=== PATIENT | male | born 1955 | race Native Hawaiian/Other Pacific Islander ===

== ENCOUNTER 2017-08-05 00:09 | Inpatient (IN) | payer OTHER ==
[~2017-08-05] VITALS: Ht 177.8 cm; Wt 106.1 kg
[~2017-08-05 00:09] MED LIST: PHEN-649 PO; PHENY100 PO
[2017-08-05] MEDS ORDERED: NITROGLYCERIN 2% (1 GM=INCH) PACKET TP ONE (00:30)
[2017-08-05] MEDS ORDERED: ASPIRIN 81 MG CHEWABLE TABLET PO ONE (00:30)
[2017-08-05 01:07] LABS: BASOPHILS # (AUTO) 0.04 K/uL (0.00-0.20); BASOPHILS % (AUTO) 0.4 % (0.0-2.0); EOSINOPHILS # (AUTO) 0.39 K/uL (0.00-0.70); EOSINOPHILS % (AUTO) 3.81 % (1.0-6.0); HEMATOCRIT 38.2 % (41-53); HEMOGLOBIN 12.9 g/dL (13.5-17.5); LYMPHOCYTES # (AUTO) 1.5 K/uL (1.0-4.8); LYMPHOCYTES % (AUTO) 15.3 % (22.0-44.0); MEAN CORPUSCULAR HEMOGLOBIN 29.8 pg (26.0-34.0); MEAN CORPUSCULAR HGB CONC 33.8 G/dL (31.0-37.0); MEAN CORPUSCULAR VOLUME 88 fL (80-100); MONOCYTES # (AUTO) 0.8 K/uL (0.1-1.0); MONOCYTES % (AUTO) 8.1 % (2.0-9.0); NEUTROPHILS # (AUTO) 7.3 K/uL (1.8-7.7); NEUTROPHILS % (AUTO) 72.4 % (40.0-70.0); PLATELET COUNT (AUTO) 266 K/uL (150-450); RED BLOOD CELL COUNT(AUTO) 4.35 MIL/uL (4.50-5.90); RED CELL DISTRIBUTION WIDTH 13.2 % (11.5-14.5)
[2017-08-05] MEDS ORDERED: SODIUM CHLORIDE 0.9% 1,000 ML IV ONE ×2 (01:15→05:30)
[2017-08-05] MEDS ORDERED: ONDANSETRON HCL 4 MG/2 ML VIAL IVP ONE (01:15)
[2017-08-05] MEDS ORDERED: MORPHINE SULFATE 4 MG/ML SYRINGE IVP ONE ×2 (01:15→18:30)
[2017-08-05 01:17] LABS: ANION GAP 7 mmol/L (8-16); CALCIUM, TOTAL 8.7 mg/dL (8.8-10.5); CARBON DIOXIDE 31 mmol/L (22-29); CHLORIDE 104 mmol/L (98-107); CREATININE 1.17 mg/dL (0.60-1.30); GLOMERULAR FILTR. RATE CALC > 60 mL/min (>60); GLUCOSE,RANDOM 112 mg/dL (70-110); SODIUM SERUM 142 mmol/L (136-145); UREA NITROGEN, BLOOD 21 mg/dL (7-18)
[2017-08-05 01:23] LABS: ALANINE AMINOTRANSFERASE 35 U/L (12-78); ALBUMIN 3.8 g/dL (3.4-5.0); ALKALINE PHOSPHATASE 126 U/L (46-116); ASPARTATE AMINOTRANSFERASE 26 U/L (15-37); BILIRUBIN,TOTAL 0.3 mg/dL (0.1-1.0); LIPASE 139 U/L (73-393); TOTAL PROTEIN, SERUM 7.5 g/dL (6.4-8.2)
[2017-08-05] MEDS ORDERED: HYDROmorphone 2 MG/ML SYRINGE IVP ONE ×2 (02:15→03:45)
[2017-08-05] MEDS ORDERED: ACETAMINOPHEN 325 MG TABLET PO PRN ×2 (05:30→22:00)
[2017-08-05] MEDS ORDERED: ONDANSETRON HCL 4 MG/2 ML VIAL IVP PRN ×3 (05:30→22:00)
[2017-08-05] MEDS ORDERED: 0.9% SODIUM CHLORIDE 10 ML SYRINGE IVP PRN (05:30)
[2017-08-05] MEDS ORDERED: HEPARIN SODIUM,PORCINE 5,000 UNITS/ML VIAL IVP PRN (08:30)
[2017-08-05] MEDS: MORPHINE SULFATE 4 MG/ML SYRINGE IVP PRN ×3 (08:45→23:15)
[2017-08-05 08:59] LABS: INR 1.1 (0.9-1.1); PROTHROMBIN TIME 11.1 SEC (9.4-11.6)
[2017-08-05] MEDS ORDERED: ENOXAPARIN SODIUM 100 MG/ML PF SYRINGE SQ ONE (09:00)
[2017-08-05] MEDS ORDERED: ENOXAPARIN SODIUM 100 MG/ML PF SYRINGE SQ SCH (09:00)
[2017-08-05 09:12] LABS: ABG A-A DIFF O2 445.1 mmHg (10-20.0); ABG CARBOXYHEMOGLOBIN 1.3 % (0.0-1.5); ABG HCO3 24.9 mmol/L (22.0-26.0); ABG METHEMOGLOBIN 0.4 % (0.0-1.5); ABG OXYGEN CONTENT 16.9 mL/dL (15.0-23.0); ABG OXYGEN SATURATION 99.5 % (95.0-98.0); ABG OXYHEMOGLOBIN 97.8 % (94.0-100.0); ABG PCO2 49 mmHg (35-45); ABG PH 7.354 (7.35-7.450); ABG TOTAL HEMOGLOBIN 11.9 G/dL (12.0-18.0); O2 DEVICE,BLOOD GAS NON REBREATHER (ROOM AIR); PO2, ARTERIAL BG 219.7 mmHg (79.0-87.0); SITE, BLOOD GAS RT RADIAL; SOURCE, BLOOD GAS ARTERIAL; TEMPERATURE, FAHRENHEIT, BG 98.2 FAHREN (96.0-98.6)
[2017-08-05] MEDS: BUDESONIDE 0.5 MG/2 ML NEB SOLUTION NEB SCH ×2 (09:15→23:14)
[2017-08-05] MEDS: HEPARIN SODIUM 25000 UNITS/D5W 250 ML IV PRN (12:38)
[2017-08-05] MEDS: ALBUTEROL SULFATE 2.5 MG/0.5 ML NEB SOLUTION NEB SCH ×4 (12:48→23:14)
[2017-08-05] MEDS: IPRATROPIUM BROMIDE 0.5 MG/2.5 ML NEB SOLUTION NEB SCH ×4 (12:48→23:14)
[2017-08-05] MEDS ORDERED: MORPHINE SULFATE 4 MG/ML SYRINGE ONE (18:10)
[2017-08-05] MEDS ORDERED: MORPHINE SULFATE 4 MG/ML SYRINGE IM ONE (18:15)
[2017-08-05 18:47] LABS: GLUCOSE,POINT OF CARE 110 MG/DL (70-110)
[2017-08-05] MEDS ORDERED: MORPHINE SULFATE 4 MG/ML SYRINGE IVP PRN (19:45)
[2017-08-05] MEDS ORDERED: MORPHINE SULFATE 2 MG/ML SYRINGE IVP PRN (20:00)
[2017-08-05] MEDS: HEPARIN SODIUM,PORCINE 5,000 UNITS/ML VIAL IVP PRN (20:38)
[2017-08-05] MEDS ORDERED: MAGNESIUM HYDROXIDE SUSPENSION 30 ML UDCUP PO PRN (22:00)
[2017-08-05] MEDS ORDERED: IPRATROPIUM BROMIDE 0.5 MG/2.5 ML NEB SOLUTION NEB PRN (22:00)
[2017-08-05] MEDS ORDERED: ZOLPIDEM TARTRATE 5 MG TABLET PO PRN (22:00)
[2017-08-05] MEDS ORDERED: ALBUTEROL SULFATE 2.5 MG/0.5 ML NEB SOLUTION NEB PRN (22:00)
[2017-08-05] MEDS ORDERED: BISACODYL 10 MG RECTAL RECTAL SUPPOSITORY PR PRN (22:00)
[2017-08-06] VITALS (8 sets, daily range): BP systolic 114–149; BP diastolic 52–87
[2017-08-06] MEDS: IPRATROPIUM BROMIDE 0.5 MG/2.5 ML NEB SOLUTION NEB SCH ×6 (02:58→23:11)
[2017-08-06] MEDS: ALBUTEROL SULFATE 2.5 MG/0.5 ML NEB SOLUTION NEB SCH ×6 (02:58→23:11)
[2017-08-06] MEDS: HEPARIN SODIUM 25000 UNITS/D5W 250 ML IV PRN ×2 (06:16→19:54)
[2017-08-06] MEDS: MORPHINE SULFATE 4 MG/ML SYRINGE IVP PRN ×2 (07:00→23:15)
[2017-08-06 08:21] LABS: BASOPHILS % (AUTO) 0.2 % (0.0-2.0); EOSINOPHILS % (AUTO) 1.2 % (1.0-6.0); HEMATOCRIT 34.3 % (41-53); HEMOGLOBIN 11.8 g/dL (13.5-17.5); LYMPHOCYTES # (AUTO) 1.2 K/uL (1.0-4.8); LYMPHOCYTES % (AUTO) 10.1 % (22.0-44.0); MEAN CORPUSCULAR HEMOGLOBIN 30.2 pg (26.0-34.0); MEAN CORPUSCULAR HGB CONC 34.5 G/dL (31.0-37.0); MEAN CORPUSCULAR VOLUME 88 fL (80-100); MONOCYTES # (AUTO) 0.8 K/uL (0.1-1.0); MONOCYTES % (AUTO) 7.2 % (2.0-9.0); NEUTROPHILS # (AUTO) 9.3 K/uL (1.8-7.7); NEUTROPHILS % (AUTO) 81.3 % (40.0-70.0); PLATELET COUNT (AUTO) 249 K/uL (150-450); RED BLOOD CELL COUNT(AUTO) 3.92 MIL/uL (4.50-5.90); RED CELL DISTRIBUTION WIDTH 13.5 % (11.5-14.5)
[2017-08-06 08:47] LABS: ALANINE AMINOTRANSFERASE 26 U/L (12-78); ALBUMIN 2.8 g/dL (3.4-5.0); ALKALINE PHOSPHATASE 107 U/L (46-116); ANION GAP 5 mmol/L (8-16); ASPARTATE AMINOTRANSFERASE 17 U/L (15-37); BILIRUBIN,TOTAL 0.5 mg/dL (0.1-1.0); CALCIUM, TOTAL 8.1 mg/dL (8.8-10.5); CARBON DIOXIDE 30 mmol/L (22-29); CHLORIDE 101 mmol/L (98-107); CREATININE 1.05 mg/dL (0.60-1.30); GLOMERULAR FILTR. RATE CALC > 60 mL/min (>60); GLUCOSE,RANDOM 129 mg/dL (70-110); POTASSIUM 3.8 mmol/L (3.5-5.1); SODIUM SERUM 136 mmol/L (136-145); THYROID STIMULATING HORMONE 0.29 uIU/mL (0.36-3.74); TOTAL PROTEIN, SERUM 6.9 g/dL (6.4-8.2); UREA NITROGEN, BLOOD 8 mg/dL (7-18)
[2017-08-06] MEDS: PANTOPRAZOLE SODIUM 40 MG/VIAL IVP SCH (09:05)
[2017-08-06] MEDS: HYDROCODONE/ACETAMINOPHEN 5-325 MG TABLET PO PRN ×2 (09:05→18:35)
[2017-08-06] MEDS: DOCUSATE SODIUM 100 MG CAPSULE PO SCH ×2 (09:05→21:30)
[2017-08-06 10:17] LABS: ABG A-A DIFF O2 167.6 mmHg (10-20.0); ABG CARBOXYHEMOGLOBIN 1.4 % (0.0-1.5); ABG HCO3 25.9 mmol/L (22.0-26.0); ABG METHEMOGLOBIN 0.2 % (0.0-1.5); ABG OXYGEN SATURATION 93.9 % (95.0-98.0); ABG OXYHEMOGLOBIN 92.4 % (94.0-100.0); ABG PCO2 43 mmHg (35-45); ABG PH 7.408 (7.35-7.450); ABG TOTAL HEMOGLOBIN 12.3 G/dL (12.0-18.0); PO2, ARTERIAL BG 68.1 mmHg (79.0-87.0); SOURCE, BLOOD GAS ARTERIAL; TEMPERATURE, FAHRENHEIT, BG 98.3 FAHREN (96.0-98.6)
[2017-08-06 10:18] LABS: O2 DEVICE,BLOOD GAS VENTI MASK (ROOM AIR); SITE, BLOOD GAS RT RADIAL
[2017-08-06] MEDS: BUDESONIDE 0.5 MG/2 ML NEB SOLUTION NEB SCH ×2 (10:52→19:33)
[2017-08-06] MEDS ORDERED: FentaNYL CITRATE-PF 100 MCG/2 ML VIAL ONE (11:09)
[2017-08-06] MEDS ORDERED: MIDAZOLAM HCL 2 MG/2 ML VIAL ONE (11:09)
[2017-08-06] MEDS ORDERED: MIDAZOLAM HCL 2 MG/2 ML VIAL IVP ONE (12:11)
[2017-08-06] MEDS: HEPARIN SODIUM,PORCINE 5,000 UNITS/ML VIAL IVP PRN (18:37)
[2017-08-07] MEDS: HEPARIN SODIUM 25000 UNITS/D5W 250 ML IV PRN ×3 (01:37→18:31)
[2017-08-07] MEDS: ALBUTEROL SULFATE 2.5 MG/0.5 ML NEB SOLUTION NEB SCH ×6 (02:42→23:09)
[2017-08-07] MEDS: IPRATROPIUM BROMIDE 0.5 MG/2.5 ML NEB SOLUTION NEB SCH ×6 (02:42→23:08)
[2017-08-07 05:30] VITALS: BP 137/76
[2017-08-07 07:40] LABS: BASOPHILS # (AUTO) 0.09 K/uL (0.00-0.20); BASOPHILS % (AUTO) 0.9 % (0.0-2.0); EOSINOPHILS # (AUTO) 0.28 K/uL (0.00-0.70); EOSINOPHILS % (AUTO) 2.83 % (1.0-6.0); HEMATOCRIT 32.8 % (41-53); LYMPHOCYTES # (AUTO) 1.2 K/uL (1.0-4.8); LYMPHOCYTES % (AUTO) 12.1 % (22.0-44.0); MEAN CORPUSCULAR HEMOGLOBIN 29.9 pg (26.0-34.0); MEAN CORPUSCULAR HGB CONC 33.6 G/dL (31.0-37.0); MEAN CORPUSCULAR VOLUME 89 fL (80-100); MONOCYTES # (AUTO) 0.8 K/uL (0.1-1.0); MONOCYTES % (AUTO) 7.6 % (2.0-9.0); NEUTROPHILS # (AUTO) 7.6 K/uL (1.8-7.7); NEUTROPHILS % (AUTO) 76.5 % (40.0-70.0); PLATELET COUNT (AUTO) 230 K/uL (150-450); RED BLOOD CELL COUNT(AUTO) 3.68 MIL/uL (4.50-5.90); RED CELL DISTRIBUTION WIDTH 13.6 % (11.5-14.5)
[2017-08-07 07:42] LABS: ANION GAP 6 mmol/L (8-16); CALCIUM, TOTAL 8.1 mg/dL (8.8-10.5); CARBON DIOXIDE 31 mmol/L (22-29); CHLORIDE 102 mmol/L (98-107); CREATININE 1.15 mg/dL (0.60-1.30); GLOMERULAR FILTR. RATE CALC > 60 mL/min (>60); GLUCOSE,RANDOM 109 mg/dL (70-110); POTASSIUM 3.7 mmol/L (3.5-5.1); SODIUM SERUM 139 mmol/L (136-145); UREA NITROGEN, BLOOD 10 mg/dL (7-18)
[2017-08-07 07:55] VITALS: BP 129/79
[2017-08-07] MEDS: DOCUSATE SODIUM 100 MG CAPSULE PO SCH ×2 (09:00→20:38)
[2017-08-07] MEDS: PANTOPRAZOLE SODIUM 40 MG/VIAL IVP SCH (09:35)
[2017-08-07] MEDS: BUDESONIDE 0.5 MG/2 ML NEB SOLUTION NEB SCH ×2 (10:00→23:08)
[2017-08-07 11:27] VITALS: BP 122/81
[2017-08-07] MEDS: MORPHINE SULFATE 4 MG/ML SYRINGE IVP PRN ×2 (14:46→20:39)
[2017-08-07 15:18] VITALS: BP 149/86
[2017-08-07] MEDS: MethylPREDNISolone SOD SUCC 40 MG/ML VIAL IVP SCH (18:29)
[2017-08-07] MEDS: HEPARIN SODIUM,PORCINE 5,000 UNITS/ML VIAL IVP PRN (18:30)
[2017-08-07] MEDS ORDERED: PROPRANOLOL HCL 40 MG TABLET PO ONE (18:30)
[2017-08-07] MEDS: APIXABAN 5 MG TABLET PO SCH (20:39)
[2017-08-07 23:25] VITALS: BP 131/80
[2017-08-08] MEDS: MORPHINE SULFATE 4 MG/ML SYRINGE IVP PRN (00:42)
[2017-08-08] MEDS: MethylPREDNISolone SOD SUCC 40 MG/ML VIAL IVP SCH ×4 (00:46→19:45)
[2017-08-08] MEDS: IPRATROPIUM BROMIDE 0.5 MG/2.5 ML NEB SOLUTION NEB SCH ×6 (03:23→23:00)
[2017-08-08] MEDS: ALBUTEROL SULFATE 2.5 MG/0.5 ML NEB SOLUTION NEB SCH ×6 (03:23→23:00)
[2017-08-08 04:58] VITALS: BP 145/96
[2017-08-08] MEDS: HYDROCODONE/ACETAMINOPHEN 5-325 MG TABLET PO PRN ×3 (05:44→21:12)
[2017-08-08 08:39] VITALS: BP 128/85
[2017-08-08] MEDS: DOCUSATE SODIUM 100 MG CAPSULE PO SCH ×2 (08:47→21:11)
[2017-08-08] MEDS: PANTOPRAZOLE SODIUM 40 MG/VIAL IVP SCH (08:47)
[2017-08-08] MEDS: APIXABAN 5 MG TABLET PO SCH ×2 (08:48→21:11)
[2017-08-08] MEDS: BUDESONIDE 0.5 MG/2 ML NEB SOLUTION NEB SCH ×2 (09:20→23:00)
[2017-08-08 11:20] VITALS: BP 105/54
[2017-08-08 15:41] VITALS: BP 113/56
[2017-08-08 19:44] VITALS: BP 104/77
[2017-08-08 22:49] VITALS: BP 126/69
[2017-08-09] MEDS: MethylPREDNISolone SOD SUCC 40 MG/ML VIAL IVP SCH ×4 (01:39→18:02)
[2017-08-09 01:44] VITALS: BP 129/77
[2017-08-09] MEDS: IPRATROPIUM BROMIDE 0.5 MG/2.5 ML NEB SOLUTION NEB SCH ×6 (03:40→22:57)
[2017-08-09] MEDS: ALBUTEROL SULFATE 2.5 MG/0.5 ML NEB SOLUTION NEB SCH ×6 (03:40→22:57)
[2017-08-09 05:02] VITALS: BP 123/65
[2017-08-09] MEDS: BUDESONIDE 0.5 MG/2 ML NEB SOLUTION NEB SCH ×2 (07:35→19:09)
[2017-08-09 08:00] VITALS: BP 123/78
[2017-08-09] MEDS: PANTOPRAZOLE SODIUM 40 MG/VIAL IVP SCH (08:33)
[2017-08-09] MEDS: DOCUSATE SODIUM 100 MG CAPSULE PO SCH ×2 (08:33→19:38)
[2017-08-09] MEDS: HYDROCODONE/ACETAMINOPHEN 5-325 MG TABLET PO PRN ×2 (08:45→18:02)
[2017-08-09] MEDS: APIXABAN 5 MG TABLET PO SCH ×2 (11:12→22:22)
[2017-08-09 12:00] VITALS: BP 141/75
[2017-08-09 16:20] VITALS: BP 130/78
[2017-08-09 19:12] VITALS: BP 140/78
[2017-08-09] MEDS: MORPHINE SULFATE 4 MG/ML SYRINGE IVP PRN (19:38)
[2017-08-10] MEDS: MethylPREDNISolone SOD SUCC 40 MG/ML VIAL IVP SCH ×3 (00:03→12:06)
[2017-08-10 01:25] VITALS: BP 148/73
[2017-08-10] MEDS: HYDROCODONE/ACETAMINOPHEN 5-325 MG TABLET PO PRN ×3 (01:36→12:06)
[2017-08-10] MEDS: ALBUTEROL SULFATE 2.5 MG/0.5 ML NEB SOLUTION NEB SCH ×3 (03:19→11:36)
[2017-08-10] MEDS: IPRATROPIUM BROMIDE 0.5 MG/2.5 ML NEB SOLUTION NEB SCH ×3 (03:19→11:36)
[2017-08-10 06:07] VITALS: BP 140/91
[2017-08-10 07:06] LABS: EOSINOPHILS % (AUTO) 0 % (1.0-6.0); HEMOGLOBIN 11.3 g/dL (13.5-17.5); LYMPHOCYTES # (AUTO) 0.7 K/uL (1.0-4.8); LYMPHOCYTES % (AUTO) 2.8 % (22.0-44.0); MEAN CORPUSCULAR HEMOGLOBIN 29.6 pg (26.0-34.0); MEAN CORPUSCULAR HGB CONC 33.2 G/dL (31.0-37.0); MEAN CORPUSCULAR VOLUME 89 fL (80-100); MONOCYTES # (AUTO) 1.5 K/uL (0.1-1.0); MONOCYTES % (AUTO) 6.3 % (2.0-9.0); NEUTROPHILS # (AUTO) 21.6 K/uL (1.8-7.7); PLATELET COUNT (AUTO) 333 K/uL (150-450); RED BLOOD CELL COUNT(AUTO) 3.82 MIL/uL (4.50-5.90); RED CELL DISTRIBUTION WIDTH 13.4 % (11.5-14.5)
[2017-08-10 07:31] LABS: NEUTROPHILS % (AUTO) 90.9 % (40.0-70.0)
[2017-08-10 07:32] LABS: CARBON DIOXIDE 27 mmol/L (22-29); CREATININE 1.16 mg/dL (0.60-1.30); GLOMERULAR FILTR. RATE CALC > 60 mL/min (>60); GLUCOSE,RANDOM 172 mg/dL (70-110); UREA NITROGEN, BLOOD 18 mg/dL (7-18)
[2017-08-10 07:45] LABS: ANION GAP 10 mmol/L (8-16); CALCIUM, TOTAL 8.5 mg/dL (8.8-10.5); CHLORIDE 103 mmol/L (98-107); SODIUM SERUM 140 mmol/L (136-145)
[2017-08-10] MEDS: BUDESONIDE 0.5 MG/2 ML NEB SOLUTION NEB SCH (07:48)
[2017-08-10] MEDS: APIXABAN 5 MG TABLET PO SCH (08:06)
[2017-08-10] MEDS: MORPHINE SULFATE 4 MG/ML SYRINGE IVP PRN (08:06)
[2017-08-10] MEDS: DOCUSATE SODIUM 100 MG CAPSULE PO SCH (08:07)
[2017-08-10] MEDS: PANTOPRAZOLE SODIUM 40 MG/VIAL IVP SCH (08:07)
[2017-08-10 08:38] VITALS: BP 155/95
[2017-08-10] MEDS ORDERED: PRED20 PO (11:17)
[2017-08-10] MEDS ORDERED: APIX5TAB PO (11:23)
[2017-08-10 11:26] VITALS: BP 155/91
[2017-08-10] MEDS ORDERED: INSULIN GLARGINE,HUM.REC.ANLOG 100 UNITS/ML SQ SCH ×2 (11:45→21:00)
[2017-08-10] MEDS ORDERED: INSULIN ASPART 100 UNITS/ML SQ ONE (11:45)
[2017-08-14] MEDS ORDERED: APIXABAN 5 MG TABLET PO SCH (21:00)
== END 2017-08-10 14:40 | disposition home or self-care (01) | DRG 136 ==
LOC: EMS 00:10 → ICU 12:44 → 5S 08-06 16:20 → ICU 08-06 16:20 → 5N 08-06 18:05 → 4E 08-08 22:05
PROVIDERS: ADMIT Hospitalist; ATTEND Hospitalist
PROC: 5A09357 Assistance with Respiratory Ventilation, Less than 24 Consecutive Hours, Continuous Positive Airway Pressure (ICD-10-PCS; 2017-08-05)
PROC: 0BBG3ZX Excision of Left Upper Lung Lobe, Percutaneous Approach, Diagnostic (ICD-10-PCS; principal; 2017-08-06)
DX: C34.92 Malignant neoplasm of unspecified part of left bronchus or lung (principal); I26.99 Other pulmonary embolism without acute cor pulmonale; J96.01 Acute respiratory failure with hypoxia; I82.409 Acute embolism and thrombosis of unspecified deep veins of unspecified lower extremity; J44.1 Chronic obstructive pulmonary disease with (acute) exacerbation; I10 Essential (primary) hypertension; F17.210 Nicotine dependence, cigarettes, uncomplicated; G40.909 Epilepsy, unspecified, not intractable, without status epilepticus; Z79.01 Long term (current) use of anticoagulants; Z79.82 Long term (current) use of aspirin; Z80.8 Family history of malignant neoplasm of other organs or systems; Z79.899 Other long term (current) drug therapy; Z71.6 Tobacco abuse counseling
CPT/HCPCS: 32405; 71275; 82805; 82962; 83735; 84100; 84443; 85379; 87015; 87040; 87070; 87081; 87101; 87205; 87206; 88305; 88341; 88342; 93005; 93306; 93971; 94640; 96372; 96374; 96375; 96376; 99291; C9113; J1170; J1644; J1650; J1815; J2250; J2270; J2405; J2920; J3010; J7030

== ENCOUNTER 2017-08-30 15:48 | Emergency (ER) | payer OTHER ==
[~2017-08-30] VITALS: Ht 177.8 cm; Wt 100.0 kg
[~2017-08-30 15:48] MED LIST changes: +APIX5TAB PO; -PHEN-649 PO; -PHENY100 PO; +PRED20 PO
[2017-08-30] MEDS ORDERED: LORA0.5T2 PO (16:02)
[2017-08-30] MEDS ORDERED: HYDR-308 PO (16:02)
[2017-08-30] MEDS ORDERED: CHEMO PO (16:02)
[2017-08-30] MEDS ORDERED: ALBU8HFA IH (16:02)
[2017-08-30 16:04] VITALS: BP 137/77
[2017-08-30] MEDS ORDERED: ALBUTEROL SULFATE 5 MG/ML 20 ML NEB SOLN [BULK] NEB ONE (16:30)
[2017-08-30] MEDS ORDERED: IPRATROPIUM BROMIDE 0.5 MG/2.5 ML NEB SOLUTION NEB ONE (16:30)
== END 2017-08-30 17:56 | disposition home or self-care (01) ==
LOC: EMS 15:49
DX: J44.1 Chronic obstructive pulmonary disease with (acute) exacerbation (principal); C34.90 Malignant neoplasm of unspecified part of unspecified bronchus or lung; I10 Essential (primary) hypertension; F17.210 Nicotine dependence, cigarettes, uncomplicated; Z79.01 Long term (current) use of anticoagulants; Z71.6 Tobacco abuse counseling
CPT/HCPCS: 94644; 99285; 99406; J7611